=== PATIENT | female | born 2000 | race Caucasian/White ===

== ENCOUNTER 2020-03-29 13:01 | Emergency (ER) | payer OTHER ==
[~2020-03-29] VITALS: Ht 167.6 cm; Wt 65.0 kg
[2020-03-29 13:17] VITALS: BP 103/67
== END 2020-03-29 13:54 | disposition home or self-care (01) ==
LOC: ER 13:01
DX: H92.01 Otalgia, right ear (principal); H61.21 Impacted cerumen, right ear
CPT/HCPCS: 69209; 99282